=== PATIENT | female | born 1980 | race Two or more races ===

== ENCOUNTER 2022-01-05 14:18 | Emergency (ER) | payer OTHER ==
[~2022-01-05] VITALS: Ht 167.6 cm; Wt 120.2 kg
[2022-01-05 15:28] LABS: Basophils # (auto) 0.1 10 ^3/uL (0-0.2); Lymphocytes # (auto) 2.5 10 ^3/uL (0.4-5.4); Neutrophils # (auto) 5.7 10 ^3/uL (1.6-8.6)
[2022-01-05 15:30] LABS: Basophils % (auto) 1.5 % (0.0-2.0); Eosinophils # (auto) 0.3 10 ^3/uL (0-0.8); Eosinophils % (auto) 3.5 % (0.0-7.0); Hematocrit 41.5 % (36.0-46.0); Lymphocytes % (auto) 26.8 % (10.0-50.0); Mean Corpuscular Hemoglobin 26.2 pg (28.0-32.0); Mean Corpuscular Hgb Conc. 33.7 g/dL (32.0-36.0); Mean Corpuscular Volume 77.7 fL (80.0-100.0); Monocytes # (auto) 0.7 10 ^3/uL (0-1.3); Monocytes % (auto) 7.9 % (0.0-12.0); Neutrophils % (auto) 60.3 % (37.0-80.0); Nucleated Red Blood Cells % 0.2 %; Red Blood Cells 5.34 10^6/uL (4.0-5.20); Red Cell Distribution Width 14.3 % (11.8-14.3); White Blood Cell 9.4 10^3/uL (4.4-10.8)
[2022-01-05 15:43] LABS: INR 0.96 (0.9-1.15); Partial Thromboplastin Time 28.5 sec (23.6-33.0)
[2022-01-05 19:15] VITALS: BP 125/92
== END 2022-01-05 19:17 | disposition home or self-care (01) ==
LOC: ER 14:18
DX: N93.8 Other specified abnormal uterine and vaginal bleeding (principal); Z88.1 Allergy status to other antibiotic agents
CPT/HCPCS: 36415; 76830; 76856; 84702; 85025; 85610; 85730